=== PATIENT | male | born 1990 | race Asian ===

== ENCOUNTER 2021-09-12 13:19 | Emergency (ER) | payer MEDICAID ==
[2021-09-12 13:29] VITALS: BP 125/67
--- NOTE | 2021-09-12 13:44 | ED Physician Documentation ---
History of Present Illness - Stated complaint Stated Complaint: RASH CHEST/ARM - Chief complaint Chief Complaint: General - History obtained from History obtained from: Patient - Additonal information Additional information: 31-year-old gentleman developed itchy hives mostly on the neck and chest and arms last night. He is never had this before. Cause is unknown. No new exposures. Review of Systems Constitutional: reports: Reviewed and negative Eyes: reports: Reviewed and negative Nose: denies: Rhinorrhea / runny nose Throat: denies: Sore throat Respiratory: reports: Reviewed and negative PD PAST MEDICAL HISTORY - Present Medications Home Medications: Ambulatory Orders Medication Instructions Recorded Confirmed Doxepin [SINEquan] 10 mg PO TID PRN #14 cap 09/12/21 predniSONE [Deltasone] 60 mg PO DAILY 5 Days #15 tablet 09/12/21 - Allergies Allergies/Adverse Reactions: Allergies Allergy/AdvReac Type Severity Reaction Status Date / Time No Known Drug Allergies Allergy Verified 09/12/21 13:29 PD ED PE NORMAL - Vitals Vital signs reviewed: Yes - General General: Alert and oriented X 3, No acute distress - Derm Derm: Other (He has urticaria mostly on the neck and upper anterior chest as well as the flexor surfaces of the arms.) - Neuro Neuro: Alert and oriented X 3, Normal speech Results - Vitals Vitals: Vital Signs - 24 hr 09/12/21 13:26 Temperature 36.5 C Heart Rate 68 Respiratory 16 Rate Blood Pressure 125/67 O2 Saturation 98 Oxygen O2 Source Room air PD MEDICAL DECISION MAKING - ED course ED course: The patient and family were counseled as to the diagnosis and need for follow- up. I counseled the patient with regard to signs and symptoms that would necessitate an urgent reevaluation in the emergency department. They understand they are welcome to return at any time if worse or if not improving as expected. This document was made in part using voice recognition software. While efforts are made to proofread this documents, sound alike and grammatical errors may occur. Departure - Departure Disposition: 01 Home, Self Care Clinical Impression: Urticaria Condition: Good Record reviewed to determine appropriate education?: Yes Instructions: ED Urticaria Prescriptions: predniSONE [Deltasone] 60 mg PO DAILY 5 Days #15 tablet Doxepin [SINEquan] 10 mg PO TID PRN #14 cap PRN Reason: Itching Comments: I sent your prescription electronically to [facility] in [place]. As discussed is not clear what is causing your hives, if it comes a recurrent phenomenon talk with your primary care physician about a referral to an infant caregiver. Return for new or worsening symptoms. Do not drink or drive while taking doxepin, the itching medicine as it will make you sleepy.
== END 2021-09-12 13:51 | disposition home or self-care (01) ==
LOC: ED 13:19
DX: L50.9 Urticaria, unspecified (principal)
CPT/HCPCS: 99282; 99283